=== PATIENT | male | born 1950 | race Caucasian/White ===

== ENCOUNTER 2017-01-05 09:41 | Emergency (ER) | payer OTHER, MEDICARE ==
[2017-01-05] MEDS ORDERED: CYCLOBENZAPRINE HCL 10 MG TABLET ONE (10:08)
[2017-01-05] MEDS ORDERED: IBUPROFEN 600 MG TABLET ONE (10:33)
[2017-01-05] MEDS ORDERED: PREDNISONE 20 MG TABLET ONE (10:33)
--- NOTE | 2017-01-05 10:42 | RAD ---
HISTORY: Patient fell. Chronic back pain. Initial encounter. COMPARISON: Films dating back to 01/21/2006 Findings: AP and lateral views of the lumbar spine with AP spot film of the lumbo-sacral junction are obtained. The alignment, development and bony structures are normal. There is no fracture, dislocation or destructive lesion. The vertebral body heights are well-preserved. Intervertebral disc height is mildly lost at multiple levels. Endplate hypertrophy with bridging osteophytes have mildly progressed since prior study. Facet disease is present predominantly at the lumbosacral junction. Possible pars defect may be present. The sacrum and sacroiliac joints are normal. IMPRESSION: Mild worsening of the patient's multilevel degenerative changes without fracture or dislocation.
== END 2017-01-05 10:59 | disposition home or self-care (01) ==
LOC: ED 09:41
DX: S39.012A Strain of muscle, fascia and tendon of lower back, initial encounter (principal); I10 Essential (primary) hypertension; Z87.891 Personal history of nicotine dependence; W01.0XXA Fall on same level from slipping, tripping and stumbling without subsequent striking against object, initial encounter; Y93.01 Activity, walking, marching and hiking
CPT/HCPCS: 72100; 99283 ×2; A9270; J7512

== ENCOUNTER 2017-02-19 20:35 | Emergency (ER) | payer OTHER, MEDICARE ==
[2017-02-19] MEDS ORDERED: OXYCODONE HCL 5 MG TABLET ONE (23:16)
[2017-02-19] MEDS ORDERED: ACETAMINOPHEN 500 MG TABLET ONE (23:16)
[2017-02-19 23:34] LABS: ABSOLUTE NEUTROPHIL COUNT 4.1 K/mm3 (1.8-7.7); BASO % 0.3 % (0.2-1.0); EOS # 0.1 (0.0-0.5); EOS % 0.7 % (0.9-2.9); HEMATOCRIT 32.2 % (32.0-52.0); HEMOGLOBIN 10.6 gm/l (14.0-18.0); IMM NEUT # 0.1 K/mm3 (0-0.2); LYMPH # 1.3 (1.0-4.8); LYMPH % 19.3 % (15-45); MEAN CELL VOLUME 106.6 fl (80.0-94.0); MEAN CORPUSCULAR HEMOGLOBIN 35.1 pg (27.0-31.0); MEAN CORPUSCULAR HGB CONC 32.9 g/dl (33.0-37.0); MEAN PLATELET VOLUME 11.1 fl (7.4-10.4); MONO # 1.4 (0.0-0.8); MONO % 19.9 % (4-12); NEUT % 58.8 % (43-75); PLATELET COUNT 163 K/mm3 (130-400); RED CELL DISTRIBUTION WIDTH 14.9 % (11.5-14.5)
[2017-02-19 23:38] LABS: CALCIUM 9.6 mg/dL (8.6-10.3)
[2017-02-19 23:40] LABS: C-REACTIVE PROTEIN 2.4 mg/dl (<1.0)
[2017-02-20 00:21] LABS: SYNOVIAL FLUID APPEARANCE CLOUDY; SYNOVIAL FLUID COLOR AMBER; SYNOVIAL FLUID SOURCE RT GREAT TOE
[2017-02-20] MEDS ORDERED: OXYCODONE HCL 5 MG TABLET ONE (00:45)
[2017-02-20] MEDS ORDERED: KETOROLAC TROMETHAMINE 15 MG/ML VIAL ONE (01:02)
--- NOTE | 2017-02-20 08:05 | RAD ---
EXAMINATION:FOOT LEFT 3 VIEWS CLINICAL INDICATION: Left great toe pain following injury. Initial encounter. COMPARISONS: 11/24/2016. FINDINGS: No fracture or focal destruction is identified. There is mild first metatarsal phalangeal joint space narrowing. Periarticular osteophyte formation is noted. No soft tissue abnormality is identified. 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 No acute fracture or dislocation is identified.
== END 2017-02-20 01:15 | disposition home or self-care (01) ==
LOC: ED 20:35
DX: M79.672 Pain in left foot (principal)
CPT/HCPCS: 89051; 86141; 85025; 87070; 80048; 82945; 87205; 85651; 73630; 99284; 96374; 20600 ×2; 99283; A9270 ×3; J1885